=== PATIENT | female | born 1960 | race African-American/Black ===

== ENCOUNTER 2023-09-16 06:13 | Emergency (ER) | payer MEDICAID ==
[~2023-09-16] VITALS: Ht 162.6 cm; Wt 56.0 kg
[2023-09-16 06:17] VITALS: BP 142/94; RESP 16; TEMP 97.3
[2023-09-16 06:18] VITALS: PULSE 93
== END 2023-09-16 06:42 | disposition home or self-care (01) ==
LOC: ER 06:28
DX: M46.90 Unspecified inflammatory spondylopathy, site unspecified (principal); Z87.39 Personal history of other diseases of the musculoskeletal system and connective tissue; Z88.8 Allergy status to other drugs, medicaments and biological substances; Z88.1 Allergy status to other antibiotic agents; Z98.890 Other specified postprocedural states
CPT/HCPCS: 99281

== ENCOUNTER 2024-02-04 06:19 | Emergency (ER) | payer MEDICARE, MEDICAID ==
[~2024-02-04] VITALS: Ht 162.6 cm; Wt 58.5 kg
[2024-02-04 06:31] VITALS: O2SAT 98
[2024-02-04] MEDS ORDERED: CLIN-194 MT (06:59)
[2024-02-04] MEDS ORDERED: MUPI22OI2 TP (06:59)
[2024-02-04] MEDS: CLINDAMYCIN HCL 150MG CAPSULE PO SCH (07:54)
[2024-02-04 08:40] VITALS: BP 138/74; PULSE 70; RESP 16; TEMP 36.83628; O2SAT 100
== END 2024-02-04 08:57 | disposition home or self-care (01) ==
LOC: ER 06:19
DX: L03.012 Cellulitis of left finger (principal); L03.011 Cellulitis of right finger; Z98.890 Other specified postprocedural states; Z88.8 Allergy status to other drugs, medicaments and biological substances
CPT/HCPCS: 99283

== ENCOUNTER 2024-02-22 09:13 | Emergency (ER) | payer MEDICARE, MEDICAID ==
[~2024-02-22] VITALS: Ht 162.6 cm; Wt 55.8 kg
[~2024-02-22 09:13] MED LIST: CLIN-194 MT; MUPI22OI2 TP
[2024-02-22 09:21] VITALS: BP 142/81; PULSE 72; RESP 16; TEMP 98.1; O2SAT 99
[2024-02-22] MEDS ORDERED: CLIN-194 MT (09:54)
[2024-02-22] MEDS ORDERED: MUPI22OI2 TP (09:54)
== END 2024-02-22 10:08 | disposition home or self-care (01) ==
LOC: ER 09:33
DX: L03.012 Cellulitis of left finger (principal); M79.7 Fibromyalgia; Z98.890 Other specified postprocedural states; Z79.899 Other long term (current) drug therapy
CPT/HCPCS: 99283

== ENCOUNTER 2024-03-06 05:13 | Emergency (ER) | payer MEDICARE, MEDICAID ==
[~2024-03-06] VITALS: Ht 165.1 cm; Wt 58.4 kg
[2024-03-06 05:45] VITALS: O2SAT 97
[2024-03-06 06:40] VITALS: BP 124/86; PULSE 78; RESP 16; TEMP 36.50292; O2SAT 99
== END 2024-03-06 06:43 | disposition home or self-care (01) ==
LOC: ER 05:13
DX: R68.3 Clubbing of fingers (principal); Z88.8 Allergy status to other drugs, medicaments and biological substances; Z91.09 Other allergy status, other than to drugs and biological substances; Z91.048 Other nonmedicinal substance allergy status; Z98.890 Other specified postprocedural states; Z87.891 Personal history of nicotine dependence
CPT/HCPCS: 99281

== ENCOUNTER 2024-07-28 06:15 | Emergency (ER) | payer MEDICARE, MEDICAID ==
[~2024-07-28] VITALS: Ht 162.6 cm; Wt 62.0 kg
[2024-07-28 06:27] VITALS: O2SAT 100
[2024-07-28] MEDS: KETOROLAC 30MG/ML VIAL IM ONE (07:04)
[2024-07-28 08:18] LABS: CLARITY URINE CLOUDY (CLEAR); COLOR URINE YELLOW (YELLOW); GLUCOSE URINE NEGATIVE (NEGATIVE); KETONES URINE NEGATIVE (NEGATIVE); LEUKOCYTE ESTERASE URINE 2+ (NEGATIVE); NITRITE URINE NEGATIVE (NEGATIVE); OCCULT BLOOD URINE TRACE (NEGATIVE); PROTEIN URINE NEGATIVE (NEGATIVE); SPECIFIC GRAVITY URINE 1.016 (1.005-1.030); UROBILINOGEN URINE 0.2 E.U./dL (0.2-1.0)
[2024-07-28 08:19] LABS: CARBON DIOXIDE 28 mEq/L (21-32); CHLORIDE 107 mEq/L (98-107); POTASSIUM 4.5 mEq/L (3.5-5.1); SODIUM 142 mEq/L (136-145)
[2024-07-28 08:20] LABS: CALCIUM 9.4 mg/dL (8.7-10.4)
[2024-07-28 08:24] LABS: CREATININE 0.8 mg/dL (0.6-1.0)
[2024-07-28 08:25] LABS: GLUCOSE 101 mg/dL (70-105); UREA NITROGEN BLOOD 11 mg/dL (9-23)
[2024-07-28 08:26] LABS: ALANINE AMINOTRANSFERASE 41 IU/L (10-49); ALBUMIN 4.1 g/dL (3.2-4.8); ASPARTATE AMINOTRANSFERASE 34 IU/L (<34)
[2024-07-28 08:27] LABS: BILIRUBIN DIRECT 0.1 mg/dL (<=3.0); BILIRUBIN TOTAL 0.5 mg/dL (0.1-1.0); PROTEIN TOTAL 6.3 g/dL (6.0-8.3)
[2024-07-28 08:30] LABS: BASOPHILS % 0.4 % (0.0-2.0); DIFFERENTIAL COMMENT 0; EOSINOPHILS % 0.8 % (0.0-5.0); HEMATOCRIT. 39.1 % (36.0-48.0); HEMOGLOBIN. 12.9 g/dL (12.0-16.0); LYMPHOCYTES % 32.7 % (20.0-50.0); MEAN CORPUSCULAR HEMOGLOBIN 29.2 pg (28.0-32.0); MEAN CORPUSCULAR VOLUME 88.6 fL (81.0-99.0); MEAN PLATELET VOLUME 9.4 fl (7.4-10.4); NEUTROPHILS % 58.1 % (40.0-76.0); PLATELET 206 x1000/uL (130-400); RED BLOOD CELL COUNT 4.41 mill/uL (4.2-5.4); RED CELL DISTRIBUTION WIDTH 14.4 % (11.6-14.6); WHITE BLOOD COUNT 6.8 x1000/uL (4.5-11.0)
[2024-07-28 08:48] LABS: SQUAMOUS EPITHELIAL CELL URINE 3+ /lpf (RARE/1+)
[2024-07-28 08:49] LABS: BACTERIA URINE 4+; WBC URINE 15-25 /hpf (0-2)
[2024-07-28 08:51] LABS: RBC URINE 0-2 /hpf (0-2)
[2024-07-28] MEDS ORDERED: CEPH500T MT (09:26)
[2024-07-28] MEDS ORDERED: NAPR220C61 MT (09:26)
[2024-07-28] MEDS: CEFTRIAXONE SODIUM 1G VIAL IM ONE (09:55)
[2024-07-28 09:58] VITALS: BP 134/78; PULSE 74; RESP 18; TEMP 37.2; O2SAT 100
== END 2024-07-28 10:19 | disposition home or self-care (01) ==
LOC: ER 06:27
DX: R30.0 Dysuria (principal); N10 Acute pyelonephritis; M19.90 Unspecified osteoarthritis, unspecified site; Z88.0 Allergy status to penicillin; Z98.890 Other specified postprocedural states
CPT/HCPCS: 99285; 74176; 80076; 80048; 81003; 83690; 85025; 87086; 36415; 96372; J1885; J0696

== ENCOUNTER 2025-03-27 18:25 | Emergency (ER) | payer MEDICARE, MEDICAID ==
[~2025-03-27] VITALS: Ht 165.1 cm; Wt 63.0 kg
[~2025-03-27 18:25] MED LIST changes: +CEPH500T MT; +NAPR220C61 MT
[2025-03-27 18:32] VITALS: O2SAT 100
[2025-03-27 18:58] VITALS: TEMP 37.2; O2SAT 99
[2025-03-27 21:22] VITALS: BP 141/87; PULSE 98; RESP 16
[2025-03-27] MEDS: METOCLOPRAMIDE HCL 10MG TABLET PO ONE (21:22)
[2025-03-27] MEDS: DIPHENHYDRAMINE 25MG CAPSULE PO ONE (21:22)
[2025-03-27] MEDS: KETOROLAC 15MG/ML VIAL IM ONE (21:22)
[2025-03-27] MEDS ORDERED: NAPR-1176 MT (21:58)
[2025-03-27 22:21] LABS: INFLUENZA TYPE A Presumptive Negative (Pres. Neg.)
[2025-03-27 22:22] LABS: INFLUENZA TYPE B Presumptive Negative (Pres. Neg.)
[2025-03-28 00:10] LABS: BASOPHILS % 0.5 % (0.0-2.0); EOSINOPHILS % 1.6 % (0.0-5.0); HEMATOCRIT. 42.8 % (36.0-48.0); HEMOGLOBIN. 14.0 g/dL (12.0-16.0); LYMPHOCYTES % 42.5 % (20.0-50.0); MEAN PLATELET VOLUME 8.8 fl (7.4-10.4); MONOCYTES % 9.9 % (2.0-8.0); NEUTROPHILS % 45.5 % (40.0-76.0); PLATELET 207 x1000/uL (130-400); RED BLOOD CELL COUNT 4.83 mill/uL (4.2-5.4); RED CELL DISTRIBUTION WIDTH 14.6 % (11.6-14.6)
[2025-03-28 00:24] LABS: CREATININE 0.9 mg/dL (0.6-1.0); UREA NITROGEN BLOOD 9 mg/dL (9-23)
[2025-03-28 00:25] LABS: TROPONIN I HIGH SENSITIVITY < 4 ng/L (3.0-34)
== END 2025-03-28 00:55 | disposition left against medical advice (07) ==
LOC: ER 18:25 → CMPBEDREQ 03-28 11:54
DX: B34.9 Viral infection, unspecified (principal); R07.9 Chest pain, unspecified; G43.909 Migraine, unspecified, not intractable, without status migrainosus; Z79.899 Other long term (current) drug therapy; Z88.0 Allergy status to penicillin; Z20.822 Contact with and (suspected) exposure to COVID-19
CPT/HCPCS: 99285; 71045; 87426; 80048; 85025; 84484; 87804 ×2; 36415; 93005; 96372; J1885; Q0163; J8597